=== PATIENT | female | born 1955 | race Caucasian/White ===

== ENCOUNTER 2024-04-27 04:14 | Day surgery (SDC) | payer OTHER, BC ==
[2024-04-25 10:46] VITALS: BMI 24.2
[~2024-04-27 04:14] MED LIST: ACETAMINOPHEN 325 MG TABLET (FP) PO PRN
[2024-04-27] MEDS ORDERED: PHENYLEPHRINE 2.5% OPTHALMIC DROP 2ML BOTTLE ONE (06:29)
[2024-04-27] MEDS ORDERED: TROPICAMIDE 1% OPHTH SOLN 15 ML BOTTLE ONE (06:29)
[2024-04-27] MEDS ORDERED: CYCLOPENTOLATE HCL 1% OPHTH SOLN 2 ML BOTTLE ONE (06:29)
[2024-04-27] MEDS ORDERED: KETOROLAC TROMETHAMINE 0.5% EYE DROP 1 DROP DROPS ONE (06:29)
[2024-04-27] MEDS ORDERED: OFLOXACIN 0.3% OPHTHALMIC SOLUTION 5 ML BOTTLE ONE (06:30)
[2024-04-27] MEDS: OFLOXACIN 0.3% OPHTHALMIC SOLUTION 5 ML BOTTLE OP SCH (06:51)
[2024-04-27] MEDS: CYCLOPENTOLATE HCL 1% OPHTH SOLN 2 ML BOTTLE OP SCH (06:51)
[2024-04-27] MEDS: TROPICAMIDE 1% OPHTH SOLN 15 ML BOTTLE OP SCH (06:51)
[2024-04-27] MEDS: KETOROLAC TROMETHAMINE 0.5% EYE DROP 1 DROP DROPS OP SCH (06:52)
[2024-04-27] MEDS: PHENYLEPHRINE 2.5% OPHTH SOLN 15 ML BOTTLE OP SCH (07:00)
[2024-04-27] MEDS ORDERED: TETRACAINE 0.5% OPHTH SOLN 2 ML BOTTLE ONE (07:15)
[2024-04-27] MEDS ORDERED: BSS (NA/CA/MG/K) BALANCED SALT SOLUTION OPHTH SOLN 15 ML BOTTLE ONE (07:15)
[2024-04-27] MEDS ORDERED: POVIDONE-IODINE 5% OPHTHALMIC PREP 30 ML SOLUTION ONE (07:15)
[2024-04-27] MEDS ORDERED: EPINEPHrine/PF 1 MG/1 ML (1:1,000) AMPULE ONE (07:15)
[2024-04-27] MEDS ORDERED: MIDAZOLAM HCL 2 MG/2 ML SINGLE DOSE VIAL ONE (07:47)
[2024-04-27] MEDS: TETRACAINE 0.5% OPHTH SOLN 2 ML BOTTLE OS ONE ×2 (08:09)
[2024-04-27] MEDS: POVIDONE-IODINE 5% OPHTHALMIC PREP 30 ML SOLUTION OS ONE ×2 (08:12)
[2024-04-27] MEDS: LIDOCAINE HCL 1% PRESERVATIVE FREE - 30ML VIAL IO ONE ×2 (08:16)
[2024-04-27] MEDS: BSS (NA/CA/MG/K) BALANCED SALT SOLUTION OPHTH SOLN 15 ML BOTTLE OS ONE ×2 (08:20)
[2024-04-27] MEDS: CHONDROITIN SU A/HYALUR SOD 1 KIT IO ONE ×2 (08:22)
[2024-04-27] MEDS: EPINEPHrine 1:1,000 1,000 MCG/ML ML SQ ONE ×2 (08:26)
[2024-04-27] MEDS: VANCOMYCIN 500 MG VIAL (RESTRICTED TO ID ONLY) IVPB ONE ×2 (08:38)
[2024-04-27 08:53] VITALS: BP 130/50; PULSE 54; RESP 16; TEMP 97.8
== END 2024-04-27 10:05 | disposition home or self-care (01) ==
LOC: JASU-SURG 04:14
PROVIDERS: ATTEND Ophthalmology
PROC: 08RK3JZ Replacement of Left Lens with Synthetic Substitute, Percutaneous Approach (ICD-10-PCS; principal; 2024-04-27 08:00)
DX: H26.8 Other specified cataract (principal)
CPT/HCPCS: 66984; V2632; 82962

== ENCOUNTER 2024-05-11 04:11 | Day surgery (SDC) | payer OTHER, BC ==
[2024-05-06 15:21] VITALS: BMI 24.2
[2024-05-11] MEDS ORDERED: PHENYLEPHRINE 2.5% OPTHALMIC DROP 2ML BOTTLE ONE ×2 (06:11→06:49)
[2024-05-11] MEDS ORDERED: KETOROLAC TROMETHAMINE 0.5% EYE DROP 1 DROP DROPS ONE ×2 (06:11→06:49)
[2024-05-11] MEDS ORDERED: TROPICAMIDE 1% OPHTH SOLN 15 ML BOTTLE ONE ×2 (06:11→06:49)
[2024-05-11] MEDS ORDERED: CYCLOPENTOLATE HCL 1% OPHTH SOLN 2 ML BOTTLE ONE ×2 (06:11→06:49)
[2024-05-11] MEDS ORDERED: OFLOXACIN 0.3% OPHTHALMIC SOLUTION 5 ML BOTTLE ONE ×2 (06:12→06:50)
[2024-05-11] MEDS: CYCLOPENTOLATE HCL 1% OPHTH SOLN 2 ML BOTTLE OP SCH (07:09)
[2024-05-11] MEDS: OFLOXACIN 0.3% OPHTHALMIC SOLUTION 5 ML BOTTLE OP SCH (07:09)
[2024-05-11] MEDS: TROPICAMIDE 1% OPHTH SOLN 15 ML BOTTLE OP SCH (07:10)
[2024-05-11] MEDS: KETOROLAC TROMETHAMINE 0.5% EYE DROP 1 DROP DROPS OP SCH (07:10)
[2024-05-11] MEDS: PHENYLEPHRINE 2.5% OPHTH SOLN 15 ML BOTTLE OP SCH (07:10)
[2024-05-11] MEDS ORDERED: LIDOCAINE HCL/PF 1% SDV 5ML VIAL ONE (07:12)
[2024-05-11] MEDS ORDERED: EPINEPHrine/PF 1 MG/1 ML (1:1,000) AMPULE ONE (07:12)
[2024-05-11] MEDS ORDERED: POVIDONE-IODINE 5% OPHTHALMIC PREP 30 ML SOLUTION ONE (07:13)
[2024-05-11] MEDS ORDERED: BSS (NA/CA/MG/K) BALANCED SALT SOLUTION OPHTH SOLN 15 ML BOTTLE ONE (07:13)
[2024-05-11 07:16] VITALS: RESP 20
[2024-05-11] MEDS: TETRACAINE 0.5% OPHTH SOLN 2 ML BOTTLE OD ONE ×2 (08:26→09:06)
[2024-05-11] MEDS: BSS (NA/CA/MG/K) BALANCED SALT SOLUTION OPHTH SOLN 15 ML BOTTLE OD ONE ×2 (08:27→09:17)
[2024-05-11] MEDS: POVIDONE-IODINE 5% OPHTHALMIC PREP 30 ML SOLUTION OD ONE ×2 (08:27→09:10)
[2024-05-11] MEDS: LIDOCAINE HCL 1% PRESERVATIVE FREE - 30ML VIAL IO ONE ×2 (08:27→09:16)
[2024-05-11] MEDS: EPINEPHrine 1:1,000 1,000 MCG/ML ML SQ ONE ×3 (08:28→09:33)
[2024-05-11] MEDS: CHONDROITIN SU A/HYALUR SOD 1 KIT IO ONE ×2 (08:28→09:24)
[2024-05-11] MEDS: VANCOMYCIN 1 GM in D5W (PRE-DOCKED) 1,000 MG/250 ML (RESTRICTED TO ID ONLY IVPB ONE ×2 (08:30→09:35)
[2024-05-11] MEDS ORDERED: MIDAZOLAM HCL 2 MG/2 ML SINGLE DOSE VIAL ONE (08:53)
[2024-05-11 10:09] VITALS: BP 136/70; PULSE 56; TEMP 98
== END 2024-05-11 10:37 | disposition home or self-care (01) ==
LOC: JASU-SURG 04:11
PROVIDERS: ATTEND Ophthalmology
PROC: 08RJ3JZ Replacement of Right Lens with Synthetic Substitute, Percutaneous Approach (ICD-10-PCS; principal; 2024-05-11 08:00)
DX: H26.9 Unspecified cataract (principal)
CPT/HCPCS: 66984; V2632; 82962